=== PATIENT | female | born 2000 | race African-American/Black ===

== ENCOUNTER 2023-03-17 20:16 | Emergency (ER) | payer SELFPAY ==
[2023-03-17 20:20] VITALS: TEMP 97.6
[2023-03-17 20:42] LABS: BASO % 0.2 % (0.0-2.0); EOS % 0.3 % (0.0-4.0); GRAN # 4.5 K/mm3 (1.4-6.5); GRAN % 71.3 % (42.2-75.2); HEMATOCRIT 42.6 % (37.0-47.0); HEMOGLOBIN 14.7 g/dl (12.5-16.0); LYMPH # 1.3 K/mm3 (1.2-3.4); LYMPH % 21.1 % (20.0-51.0); MEAN CELL VOLUME 95 fl (80.0-100.0); MEAN CORPUSCULAR HEMOGLOBIN 33 pg (27-31); MEAN CORPUSCULAR HGB CONC 35 g/dl (33.0-37.0); MEAN PLATELET VOLUME 9.1 fl (7.4-10.4); MONO # 0.4 K/mm3 (0.1-0.6); MONO % 6.9 % (1.7-9.3); PLATELET COUNT 261 K/mm3 (130-400); RED BLOOD COUNT 4.47 M/mm3 (4.10-5.30); REDCELL DISTRIBUTION WIDTH-CV 11.5 % (11.5-14.5)
[2023-03-17 20:56] LABS: ALANINE AMINOTRANSFERASE 9 U/L (0-55); ALBUMIN 4.4 gm/dL (3.5-5.0); ALCOHOL(ethanol),MEDICAL < 10 mg/dL (0-10); ALKALINE PHOSPHATASE 71 U/L (40-150); ANION GAP 14 mmol/L (7-16); AST,SGOT 17 U/L (5-34); BILIRUBIN,TOTAL 0.2 mg/dL (0.2-1.2); BLOOD UREA NITROGEN 6 mg/dL (7-19); CALCIUM 9.6 mg/dL (8.4-10.2); CARBON DIOXIDE 21 mmol/L (22-29); CHLORIDE 106 mmol/L (98-107); CREATININE, serum 0.67 mg/dL (0.57-1.11); GLUCOSE 108 mg/dL (70-99); POTASSIUM 3.5 mmol/L (3.5-4.5); SODIUM 141 mmol/L (136-145); TOTAL PROTEIN 7.8 gm/dL (6.2-8.1)
[2023-03-17 22:44] VITALS: BP 93/59; PULSE 84
== END 2023-03-17 22:57 | disposition home or self-care (01) ==
LOC: COL.ER 20:16
PROVIDERS: Family Medicine
DX: G40.909 Epilepsy, unspecified, not intractable, without status epilepticus (principal); Z79.899 Other long term (current) drug therapy
CPT/HCPCS: J2060; J2405; J7120